=== PATIENT | male | born 1945 | race Caucasian/White ===

== ENCOUNTER 2018-02-16 18:24 | Emergency (ER) | payer OTHER, MEDICARE ==
[~2018-02-16 18:24] MED LIST: AMINOCAPROIC A500 MG PO; ATENOLOL50 MG PO; CIPRO 500MG TA500 MG PO; JANUMET 1000 MG1 TAB PO; JANUVIA 50MG50 MG PO; LOSARTAN POTASS50 MG PO; METFORMIN HCL1000 MG PO; PERCOCET 325 MG1 TA2 PO; TENORMIN 12.512.5 MG PO
[2018-02-16 19:02] LABS: ABSOLUTE BASOPHIL COUNT 0 /CUMM (0.0-0.2); ABSOLUTE EOSINOPHIL COUNT 0 /CUMM (0.0-0.7); ABSOLUTE GRANULOCYTE CT 7.3 /CUMM (1.4-6.5); ABSOLUTE LYMPH COUNT 1.2 /CUMM (1.2-3.4); ABSOLUTE MONOCYTE COUNT 1.3 /CUMM (0.10-0.60); BASOPHIL % 0.2 % (0.0-2.0); EOSINOPHIL % 0.3 % (0-5); GRANULOCYTE % 74.5 % (42.2-75.2); HEMATOCRIT 49.1 % (42-52); MEAN CORPUSCULAR HGB 29.9 PG (27.0-31.0); MEAN CORPUSCULAR HGB CONC 33.6 G/DL (33.0-37.0); MEAN CORPUSCULAR VOLUME 89.1 FL (80.0-94.0); MEAN PLATELET VOLUME 8.9 FL (7.4-10.4); PLATELET COUNT 194 /CUMM (130-400); RBC DISTRIBUTION WIDTH 13.3 % (11.5-14.5); RED BLOOD CELL CT 5.51 /CUMM (4.70-6.10); WHITE BLOOD CELL COUNT 9.9 /CUMM (4.8-10.8)
--- NOTE | 2018-02-16 19:55 | ED GI/GU/ABDOMINAL COMPLAINT ---
History of Present Illness General Chief Complaint: Male Genitourinary Problems Stated Complaint: BLEEDING OUT OF PENIS PER PT Source: patient, old records Exam Limitations: no limitations Vital Signs & Intake/Output Vital Signs & Intake/Output Vital Signs Date Time Temp Pulse Resp B/P B/P Pulse O2 O2 Flow FiO2 Mean Ox Delivery Rate 02/17 2112 99.2 76 16 117/65 95 Room Air 02/16 1838 97.8 121 19 149/76 96 Room Air Allergies Coded Allergies: shellfish derived (ALLERGIC TO LOBSTER AND CRAM VOMITING AND DIARRHEA 12/09/15) iodine (Mild, VOMITING/DIARRHEA 12/09/15) Reconcile Medications Aminocaproic Acid 500 MG TAB 2 TAB PO TID HEMATURIA Atenolol 50 MG TAB 1 TAB PO BID BP (Reported) Ciprofloxacin HCl (Cipro) 500 MG TABLET 1 TAB PO BID HEMATURIA Losartan Potassium 50 MG TAB 1 TAB PO DAILY HIGH BLOOD PRESSURE Metformin Hydrochloride/Brook (Janumet 1000 MG-50 MG) 1 TAB TAB 1 TAB PO BID DIABETES (Reported) Triage Note: PT WITH HX OF PROSTATE SURGERY X 2, KIDNEY STONES. SEEN BY MD MARTE TODAY. TO ED WITH COPIUS BLEEDING FROM PENIS, FREQUENT VOIDING SMALL AMOUNTS. Triage Nurses Notes Reviewed? yes Onset: Gradual Duration: constant Timing: recent history Severity Numbers: 5 Radiation: no radiation HPI: Patient is a 72-year-old male with a past medical history of hypertension and diabetes BPH kidney stones who is status post remote TURP and multiple cystoscopies and hematuria who presents to emergency room with concerns of hematuria 1 day. Patient did initially note decreased urine production yesterday and passing of small clots while urinating in which prior to arrival today patient has been unable to urinate. Patient denies any fever chills abdominal pain nausea vomiting testicular pain or swelling. (Cm Silver) Past History Travel History Traveled to [place] past 21 day No Medical History Any Pertinent Medical History? 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 No (Cm Silver) Review of Systems Review of Systems Constitutional: Reports: no symptoms. EENTM: Reports: no symptoms. Respiratory: Reports: no symptoms. Cardiovascular: Reports: no symptoms. GI: Reports: no symptoms. Genitourinary: Reports: see HPI, hematuria. Musculoskeletal: Reports: no symptoms. Skin: Reports: no symptoms. Neurological/Psychological: Reports: no symptoms. Hematologic/Endocrine: Reports: no symptoms. Immunologic/Allergic: Reports: no symptoms. All Other Systems: Reviewed and Negative (Cm Silver) Physical Exam Physical Exam General Appearance: no apparent distress, obese Head: atraumatic Eyes: Bilateral: normal appearance. Ears, Nose, Throat, Mouth: moist mucous membrane Neck: normal inspection Respiratory: normal breath sounds Cardiovascular: regular rate/rhythm Gastrointestinal: normal bowel sounds, soft, non-tender Extremities: normal range of motion Neurologic/Psych: no motor/sensory deficits, awake Core Measures ACS in differential dx? No Sepsis Present: No Sepsis Focused Exam Completed? No (Cm Silver) Progress Differential Diagnosis: AAA, AMI, appendicitis, biliary colic, bowel obstruction , colon cancer, cholecystitis, diverticulitis, epididymitis, gastritis, hepatitis, hernia, hemorrhoids, ischemic bowel, inflamm bowel dis, orchitis, pancreatitis, prostatitis, peptic ulcer, PUD/GERD, perforated viscous, pyelonephritis, SBO, testicular torsion, ureterolithiasis, urinary retention, urethritis, UTI/pyelo Plan of Care: Orders Procedure Date/time Status FingerStick- Glucose 02/17 2128 Active CULTURE,URINE 02/16 2009 Active URINALYSIS 02/16 1847 Complete COMPREHENSIVE METABOLIC PANEL 02/16 1841 Complete CBC WITHOUT DIFFERENTIAL 02/16 1841 Complete Laboratory Tests 02/16/182020: Urine Color BLDY H, Urine Clarity TURBD H, Urine pH 7.0, Ur Specific Pearl 1.020, Urine Protein >=300 H, Urine Ketones 15 H, Urine Nitrite POS H, Urine Bilirubin NEG, Urine Urobilinogen 4.0 H, Ur Leukocyte Esterase MOD H, Ur Microscopic SEDIMENT EXAMINED, Urine RBC PACKD H, Urine WBC 15-25 H, Urine Hemoglobin LARGE H, Urine Glucose >=1000 H 02/16/18 1845: Anion Gap 17 H, Estimated GFR > 60, BUN/Creatinine Ratio 24.4, Glucose 342 H, Calcium 9.7, Total Bilirubin 2.1 H, AST 21, ALT 27, Alkaline Phosphatase 71, Total Protein 7.8, Albumin 4.5, Globulin 3.3, Albumin/Globulin Ratio 1.4, CBC w Diff NO MAN DIFF REQ, RBC 5.51, MCV 89.1, MCH 29.9, MCHC 33.6, RDW 13.3, MPV 8.9 , Gran % 74.5, Lymphocytes % 12.1 L, Monocytes % 12.9 H, Eosinophils % 0.3, Basophils % 0.2, Absolute Granulocytes 7.3 H, Absolute Lymphocytes 1.2, Absolute Monocytes 1.3 H, Absolute Eosinophils 0, Absolute Basophils 0 Microbiology 02/16 2021 URINE ROUT: Urine Culture - RECD Patient upon initial presentation was resting comfortable at bedside patient denies any abdominal pain AND has nontender abdomen patient was able to produce while in the emergency room 60 mL of hematuria Patient's vital signs were unremarkable normotensive hemoglobin and hematocrit were unremarkable here discussed patient with Dr. Marte who advised patient to receive noncontrast CT scan and if patient was able to void in the emergency room then he was strongly advised to follow-up in office Patient does state that he did not take his blood pressure medications nor his Janumet today Upon discharge patient looks well no apparent distress and will comply out shortness instructions and had no questions. I described the scan with patient was aware and was given copy Patient again was able to void prior to discharge Diagnostic Imaging: Viewed by Me: CT Scan. Radiology Impression: SEE COMMENTS Initial ED EKG: none Comments: PATIENT: BLANCA ROBERTS PRESENT AGE: 72 PATIENT ACCOUNT NO: [id number] : 43 LOCATION: [facility] ORDERING PHYSICIAN: Cm BATISTA SERVICE DATE: 02/16/18-2020 EXAM TYPE: CAT - CT ABD & PELVIS W/O IV CONTRAS EXAMINATION: CT ABDOMEN AND PELVIS WITHOUT CONTRAST CLINICAL INFORMATION: Painless hematuria COMPARISON: 12/05/2015 TECHNIQUE: Multidetector volumetric imaging was performed from the superior aspect of the liver through the pubic symphysis. Sagittal and coronal reformatted images were obtained on the technologist's workstation. DLP: 1140 mGy-cm FINDINGS: LUNG BASES: The visualized lung bases are unremarkable. LIVER, GALLBLADDER, AND BILIARY TREE: The liver is normal in size, shape, and attenuation. No focal hepatic lesion or biliary ductal dilatation is present. Cholecystectomy. PANCREAS: Unremarkable. SPLEEN: Unremarkable. ADRENAL GLANDS: Unremarkable. KIDNEYS AND URETERS: The kidneys are normal in size, shape, and attenuation. No hydronephrosis, hydroureter, or calculi seen. Mild symmetric perinephric stranding. Right upper pole renal cyst measuring 4.5 cm. BLADDER: Bladder is distended. Prominent diverticulum at the dome of the bladder is again noted. Hyperattenuating debris is again noted at the dependent portion of the bladder, likely representing clotted blood. No significant bladder wall thickening. Faint stranding along the bladder wall. GASTROINTESTINAL TRACT: The stomach is unremarkable. The small bowel is normal in caliber. No obstruction. No colonic wall thickening or inflammatory change. No free air or free fluid. ABDOMINAL WALL: Small fat-containing left inguinal hernia. LYMPH NODES: Normal. VASCULAR: Unremarkable. PELVIC VISCERA: The prostate is enlarged, measuring 6.4 cm transverse. OSSEOUS STRUCTURES: No acute or suspicious osseous abnormality. Multilevel degenerative changes are seen throughout the spine mild degenerative changes of the hips. IMPRESSION: Similar appearance of the bladder when compared to the previous study from 12/05/2015. Prominent diverticulum at the bladder dome. Heterogeneous dense debris dependently within the bladder suggestive of blood clots. Component of cystitis not excluded. Prostatomegaly. Right renal cyst again noted. DICTATED BY: Leo Spring MD DATE/TIME DICTATED:02/16/182055 CLINICAL TRIAL DATA MANAGER:JANEY DATE/TIME TRANSCRIBED:02/16/182055 CONFIDENTIAL, DO NOT COPY WITHOUT APPROPRIATE AUTHORIZATION. <Electronically signed in Other Vendor System> SIGNED BY: Leo Spring MD 02/16 4232 (Cm Silver) Departure Departure Disposition: HOME OR SELF CARE Condition: Stable Clinical Impression Primary Impression: Hematuria Secondary Impressions: Hyperglycemia, Renal cyst Referrals: Aziza BARTON,Myl (PCP/Family) Additional Instructions: As discussed if symptoms worsen or if YOU develop any new concerning symptom return to emergency room. Please begin to take your home medications today especially your Janumet and continued checking YOUR blood sugar. Tomorrow please follow-up with your established urologist Dr. Marte. Please begin the prescription of ciprofloxacin as directed. Prescriptions waiting at [facility] Departure Forms: Customer Survey General Discharge Information Prescriptions: Current Visit Scripts Ciprofloxacin HCl (Cipro) 1 TAB PO BID #14 TAB (Cm Silver) PA/PICKING SUPERVISOR Co-Sign Statement Statement: ED Attending supervision documentation- x I saw and evaluated the patient. I have also reviewed all the pertinent lab results and diagnostic results. I agree with the findings and the plan of care as documented in the PA's/PICKING SUPERVISOR's documentation. [] I have reviewed the ED Record and agree with the PA's/PICKING SUPERVISOR's documentation. [] Additions or exceptions (if any) to the PAs/PICKING SUPERVISOR's note and plan are summarized below: [] (Jose Luis BARTON,Jose Elias)
--- NOTE | 2018-02-16 21:05 | CT SCAN REPORT ---
EXAMINATION: CT ABDOMEN AND PELVIS WITHOUT CONTRAST CLINICAL INFORMATION: Painless hematuria COMPARISON: 12/05/2015 TECHNIQUE: Multidetector volumetric imaging was performed from the superior aspect of the liver through the pubic symphysis. Sagittal and coronal reformatted images were obtained on the technologist's workstation. DLP: 1140 mGy-cm FINDINGS: LUNG BASES: The visualized lung bases are unremarkable. LIVER, GALLBLADDER, AND BILIARY TREE: The liver is normal in size, shape, and attenuation. No focal hepatic lesion or biliary ductal dilatation is present. Cholecystectomy. PANCREAS: Unremarkable. SPLEEN: Unremarkable. ADRENAL GLANDS: Unremarkable. KIDNEYS AND URETERS: The kidneys are normal in size, shape, and attenuation. No hydronephrosis, hydroureter, or calculi seen. Mild symmetric perinephric stranding. Right upper pole renal cyst measuring 4.5 cm. BLADDER: Bladder is distended. Prominent diverticulum at the dome of the bladder is again noted. Hyperattenuating debris is again noted at the dependent portion of the bladder, likely representing clotted blood. No significant bladder wall thickening. Faint stranding along the bladder wall. GASTROINTESTINAL TRACT: The stomach is unremarkable. The small bowel is normal in caliber. No obstruction. No colonic wall thickening or inflammatory change. No free air or free fluid. ABDOMINAL WALL: Small fat-containing left inguinal hernia. LYMPH NODES: Normal. VASCULAR: Unremarkable. PELVIC VISCERA: The prostate is enlarged, measuring 6.4 cm transverse. OSSEOUS STRUCTURES: No acute or suspicious osseous abnormality. Multilevel degenerative changes are seen throughout the spine mild degenerative changes of the hips. IMPRESSION: Similar appearance of the bladder when compared to the previous study from 12/05/2015. Prominent diverticulum at the bladder dome. Heterogeneous dense debris dependently within the bladder suggestive of blood clots. Component of cystitis not excluded. Prostatomegaly. Right renal cyst again noted.
[2018-02-16 21:12] VITALS: BP 117/65
[2018-02-16] MEDS ORDERED: CIPRO500 M1 PO (21:27)
== END 2018-02-16 22:07 ==
LOC: ERH 18:24
PROVIDERS: Emergency Medicine
DX: N28.1 Cyst of kidney, acquired (principal); E11.65 Type 2 diabetes mellitus with hyperglycemia
CPT/HCPCS: 74176; 81001; 87086

== ENCOUNTER 2018-02-17 14:38 | Observation (INO) | payer OTHER, MEDICARE ==
[~2018-02-17] VITALS: Ht 168.9 cm; Wt 107.5 kg
[~2018-02-17 14:38] MED LIST changes: +CIPRO500 M1 PO
--- NOTE | 2018-02-17 16:54 | PN- Urology ---
Surgical Brief Attending Note Brief Attending Note: POST OP HEMATURIA-REQUIRED CBI MUST KEEP OVERNIGHT.
--- NOTE | 2018-02-17 17:35 | Cons- Medical ---
Iliana Waller MD 02/17/18 1734: General Information and HPI Consulting Request Date of Consult: 02/17/18 Requested By: Luisito Marte MD Reason for Consult: Medical co-management of HTN and DM Source of Information: patient Exam Limitations: no limitations History of Present Illness: A pleasant 72 YO M with a PMH of T2DM, HTN and anxiety who was admitted this morning for recurrent hematuria which has been worsening. He is s/p a TURP this evening and is on continuous bladder irrigation. He denies any abdominal pain, nausea/vomiting, Chest pain or SOB. Medical Consult was called for co-management of his medical conditions. He report complianse on his medications and says his medical conditions have been stable. He is a former smoker and only drinks alcohol occassionally. Allergies/Medications Allergies: Coded Allergies: shellfish derived (ALLERGIC TO LOBSTER AND CRAM VOMITING AND DIARRHEA 12/09/15) iodine (Mild, VOMITING/DIARRHEA 12/09/15) Home Med List: Aminocaproic Acid 500 MG TAB 2 TAB PO TID HEMATURIA Atenolol 50 MG TAB 1 TAB PO BID BP (Reported) Ciprofloxacin HCl (Cipro) 500 MG TABLET 1 TAB PO BID HEMATURIA Losartan Potassium 50 MG TAB 1 TAB PO DAILY HIGH BLOOD PRESSURE Metformin Hydrochloride/Brook (Janumet 1000 MG-50 MG) 1 TAB TAB 1 TAB PO BID DIABETES (Reported) Current Medications: Current Medications Sig/Jonathan Start time Last Medication Dose Route Stop Time Status Admin Al Hydroxide/Mg 30 ML Q6P PRN 02/17 1700 AC Hydroxide PO Atenolol 50 MG DAILY 02/18 900 UNVr PO Ciprofloxacin 500 MG BID 02/17 2100 UNVr PO 02/22 0901 Docusate Sodium 100 MG DAILY NEEDED PRN 02/17 1700 UNVr PO Escitalopram Oxalate 10 MG BID PRN 02/17 1700 UNVr PO Insulin Human Regular 0 TIDAC/HS 02/17 2100 UNVr SC Losartan Potassium 50 MG DAILY 02/18 09 AC PO Metformin HCl 1,000 MG 0802/18 0800 UNVr PO Oxycodone/ 1 TAB Q4P PRN 02/17 1700 AC Acetaminophen PO Sitagliptin Phosphate 50 MG DAILY 02/18 09 UNVr PO Sodium Chloride 1,000 ML Q10H 02/17 1715 UNVr IV Zolpidem Tartrate 5 MG AT BEDTIME NEED.. 02/17 1700 AC PO Review of Systems Review of Systems Constitutional: Reports: no symptoms. Cardiovascular: Reports: no symptoms. Respiratory: Reports: no symptoms. Genitourinary: Reports: see HPI. 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 Surgical History Surgical History: non-contributory Exam & Diagnostic Data Last 24 Hrs of Vital Signs/I&O Vital Signs Date Time Temp Pulse Resp B/P B/P Pulse O2 O2 Flow FiO2 Mean Ox Delivery Rate 02/174 98.1 102 22 138/72 94 Room Air 02/17 2115 102 138/72 02/17 2114 102 138/72 Intake & Output 02/18 0800 02/18 0000 02/17 1600 Intake Total 1150 Output Total Balance 1150 Intake, IV 400 Intake, Oral 750 Patient 237 lb Weight Physical Exam General Appearance: alert, awake, comfortable, obese Respiratory: normal breath sounds, lungs clear Cardiovascular: regular rate/rhythm, normal peripheral pulses Gastrointestinal: soft, non-tender Extremities: no edema Other Physical Findings: CBI running, pinkish/red blood in bag Last 24 Hrs of Labs/Sukh: Laboratory Tests 02/17/18 1730: Anion Gap 14, Estimated GFR > 60, BUN/Creatinine Ratio 36.0 H, CBC w Diff NO MAN DIFF REQ, RBC 5.07, MCV 89.4, MCH 29.9, MCHC 33.5, RDW 13.6, MPV 8.8, Gran % 70.5, Lymphocytes % 12.6 L, Monocytes % 15.8 H, Eosinophils % 0.8, Basophils % 0.3, Absolute Granulocytes 5.1, Absolute Lymphocytes 0.9 L, Absolute Monocytes 1.1 H, Absolute Eosinophils 0.1, Absolute Basophils 0 Assessment/Plan Assessment/Plan A pleasant 72 YO M with a PMH of T2DM, HTN and anxiety/depression who was admitted this morning for recurrent hematuria which has been worsening. He is s/ p a TURP this evening with continuous bladder irrigation. He denies any abdominal pain, nausea/vomiting, chest pain or SOB. Assessment 1. Severe hematuria status post TURP-postop day 0 2. Type 2 diabetes not on insulin 3. Hypertension 4. Anxiety/depression 5. Obesity 6. Former smoker Plan -Admit to the general medicine floor -Continue continuous CBI per urology -Continue IV fluid hydration -Hold metformin and sitagliptin for now -Start subcu NovoLog sliding scale -Check fingersticks 3 times daily before meals and at bedtime -Diabetic diet -Restart his home antihypertensive and anxiety/depression medications -Patient is full code -Adequate pain control -Trend CBC -Vitals Q shift -DVT prophylaxis with Alps due to active bleeding -Thank you for your consult, we will follow along with you. Problem List: 1. Hematuria Copies To: Estuardo BARTON,Luisito Consult Acknowledgment - Thank you for your consult request. MarcioGuillermina moyer 02/18/18 0114: Assessment/Plan Consult Acknowledgment - Thank you for your consult request. Attending MD Review Statement Attending Statement Attending MD Statement: examined this patient, discuss w/resident/PA/ENGRAVER SET UP OPERATOR, agreed w/resident/PA/ENGRAVER SET UP OPERATOR, reviewed EMR data (avail), reviewed images, amended to note Attending Assessment/Plan: CC: Medical Comanagement PMH: DM, HTN, BPH s/p TURP, Hx bladder stones, ERNST Patient was admitted for gross hematuria underwent revision TURP, admitted for CBI. No complaints. Complete ROS unremarkable. Vitals: Temperature 98.1, pulse 102, RR 22, blood pressure 138/72, saturating 94 % on room air. On exam: A O 3, cooperative, obese, no acute distress, neck supple, JVD normal, no lymphadenopathy, mucosa moist, no focal neurological deficit, no dependent edema, no obvious skin rashes or inflammation CVS: S1-S2, RRR. RS: Clear to auscultate bilaterally. Abdomen: Soft, NT, ND, bowel sounds present, Serrano catheter: Hematuria. Assessment and plan # DM : Patient has intentional weight loss, on Janumet at home. We will discontinue oral hypoglycemics and continue sliding scale insulin # HTN: Continue his atenolol and losartan # ERNST : Continue nighttime CPAP # ?chronic prostatitis : Patient appears to be on by mouth Cipro started by urologist.
[2018-02-17 17:45] LABS: ABSOLUTE BASOPHIL COUNT 0 /CUMM (0.0-0.2); ABSOLUTE EOSINOPHIL COUNT 0.1 /CUMM (0.0-0.7); ABSOLUTE GRANULOCYTE CT 5.1 /CUMM (1.4-6.5); ABSOLUTE LYMPH COUNT 0.9 /CUMM (1.2-3.4); ABSOLUTE MONOCYTE COUNT 1.1 /CUMM (0.10-0.60); BASOPHIL % 0.3 % (0.0-2.0); EOSINOPHIL % 0.8 % (0-5); GRANULOCYTE % 70.5 % (42.2-75.2); HEMATOCRIT 45.3 % (42-52); MEAN CORPUSCULAR HGB 29.9 PG (27.0-31.0); MEAN CORPUSCULAR HGB CONC 33.5 G/DL (33.0-37.0); MEAN CORPUSCULAR VOLUME 89.4 FL (80.0-94.0); MEAN PLATELET VOLUME 8.8 FL (7.4-10.4); PLATELET COUNT 150 /CUMM (130-400); RBC DISTRIBUTION WIDTH 13.6 % (11.5-14.5); RED BLOOD CELL CT 5.07 /CUMM (4.70-6.10); WHITE BLOOD CELL COUNT 7.2 /CUMM (4.8-10.8)
[2018-02-17 21:44] VITALS: BP 138/72
[2018-02-18 06:00] VITALS: BP 132/68
--- NOTE | 2018-02-18 08:20 | PN- Att Addend ---
Attending Addendum Attending Brief Note Patient seen and examined. Overnight he had an uneventful night but continues to have hematuria with the Serrano. Patient seen and examined. On exam he is afebrile, blood pressures 130/60, pulse is 87, breathing at 16-18 Lungs are clear to auscultation bilaterally, heart is S1-S2 regular, abdomen is soft and like I said before he has a Serrano catheter with hematuria. His labs are still pending. This is a 72-year-old male that we were asked to consult on, he has a past medical history of diabetes on Janumet, hypertension and atenolol and losartan who is here status post TURP with hematuria. His labs are still pending. Dr. Marte is treating him with by mouth antibiotics and CBI with plan for likely discharge today with a chronic Serrano. Will need to follow-up as per urology. We will continue his antihypertensives, will follow his BUN and creatinine and his H&H as I think he was mildly dehydrated yesterday per his numbers. Right now he is on an insulin sliding scale and once he goes home he can likely restart his Janumet. The plan for likely discharge today with a chronic Serrano. Will need to follow-up as per urology.
[2018-02-18 08:35] LABS: ABSOLUTE BASOPHIL COUNT 0 /CUMM (0.0-0.2); ABSOLUTE EOSINOPHIL COUNT 0.1 /CUMM (0.0-0.7); ABSOLUTE GRANULOCYTE CT 6.3 /CUMM (1.4-6.5); ABSOLUTE LYMPH COUNT 0.8 /CUMM (1.2-3.4); ABSOLUTE MONOCYTE COUNT 1.2 /CUMM (0.10-0.60); BASOPHIL % 0.2 % (0.0-2.0); EOSINOPHIL % 1.7 % (0-5); GRANULOCYTE % 73.7 % (42.2-75.2); HEMATOCRIT 44.7 % (42-52); MEAN CORPUSCULAR HGB CONC 33.7 G/DL (33.0-37.0); MEAN CORPUSCULAR VOLUME 89.1 FL (80.0-94.0); MEAN PLATELET VOLUME 9.2 FL (7.4-10.4); PLATELET COUNT 152 /CUMM (130-400); RBC DISTRIBUTION WIDTH 13.9 % (11.5-14.5); RED BLOOD CELL CT 5.02 /CUMM (4.70-6.10); WHITE BLOOD CELL COUNT 8.5 /CUMM (4.8-10.8)
[2018-02-18 09:07] VITALS: BP 132/68
[2018-02-18] MEDS ORDERED: PERCOCET 5-3251 EACH PO (12:32)
[2018-02-18] MEDS ORDERED: DOCUSATE SODIU100 M3 PO (12:32)
--- NOTE | 2018-02-18 12:39 | PN- Urology ---
Surgical Brief Attending Note Brief Attending Note: Pt pain free/feels great: vss afebrile. overnight unremarkable. Exam unremarkable: john with clear output x 6 hours off of cbi. up in chair tolerating lunch well. Plan: dc home with john, abx, pain meds, and resume usual meds at home.
--- NOTE | 2018-02-23 07:54 | Operative Report ---
Operative/Inv Procedure Report Surgery Date: 02/17/18 Name of Procedure: revision TURP Pre-Operative Diagnosis: gross hematuria. Clot retention. Post-Operative Diagnosis: Same Estimated Blood Loss: large clot Surgeon/Reel System Operator: Luisito Marte MD Anesthesia: laryngeal mask airway Drains: 22 [place] three-way John catheter with normal saline CBI. Specimens: Prostate chips Complications: None Condition: Improved Operative Indication: Blood loss anemia with gross hematuria. Operative/Procedure Note Note: The patient was taken to the operating room and placed on the OR table in supine position. Timeout was performed, with the pt. awake, to correctly identify the patient, anesthesia, procedure, and IV antibiotics, and other pertinent perioperative information. After adequate anesthesia and antibiotics, the old John catheter was removed. The patient was then placed in lithotomy stirrups using yellowfin stirrups. The patient was then draped and prepped in the usual surgical fashion. A 26 [place]an standard resectoscope sheath with a 30 angle lens and the 24 [place] loop was inserted into the urethra, and then advanced into the bladder without significant difficulty. A large amount of clots, was Ellix evacuated out. The bladder was noted to be severely trabeculated with multiple diverticuli. No evidence of tumor, nor stone was seen in the bladder. Both ureteral orifices were in their orthotopic position with clear reflux bilaterally. With a clearer vision, the prostate was noted to have an irregular and ratty surface with severely coapting prostate lobes. This was consistent with regrowth of prostate tissue from a TURP several years ago. Upon entering the bladder, it was thoroughly and systematically surveyed revealing no evidence of tumor, no evidence of stone, both orifices were difficult to find due to the severe trabeculation, in their orthotopic position with clear yellow reflux. The resectoscope was then retracted to the level of the adrian montanum. Under direct visualization the 24 [place] loop was then extended beyond the scope. Under direct visualization, and using the cutting current, the left lobes of the prostate regrowth was resected from the 2:00 to the 6 o'clock position to the level of the fibromuscular capsule. Using coag. current, spot cauterization was performed in order to achieve good hemostasis of the prostate. The loop was then extended once again using cutting current to resect the right side of the prostate from the 10:00 to the 6 o'clock position to the level of the fibromuscular capsule. Spot cauterization using coag current was then performed in order to achieve good hemostasis. Maintaining the position of the resectoscope at the level of the vera montanum the apical tissue was resected as well on both sides. The external sphincter was preserved. The bladder was then re-entered via the resectoscope, and the prostate chips were irrigated out using tumey evacuation. Once all the prostate chips were removed, the bladder was re- evaluating and noted to have no untoward injury. Additionally, the prostate channel was noted to have good hemostasis, with a wide open channel. The resectoscope was removed with the bladder full. A 22 [place] couvalier three-way John catheter was inserted without difficulty draining clear fluid. The bladder was again copiously irrigated via the john to ensure patency/ The 30 mL balloon was then filled, and continuous bladder irrigation with normal saline was initiated. Clear and easy drainage of NS from the main port was confirmed with CBI. All sponge needle and instrument count were correct at the end of the case. The patient tolerated the procedure well and was then taken to the recovery room in satisfactory condition. Findings: Regrowth of obstructive prostate tissue Discharge Disposition: PACU CC: Estuardo BARTON,Luisito
== END 2018-02-18 13:43 ==
LOC: STS 14:38 → PACUH 15:59 → ENRESERV 17:41 → ENTRNSPT 18:03 → EDTRNSPT 18:14 → EDTRNSPTSTS 18:14 → 2NA 18:37 → CMPTRNSPT 18:39 → ENPENDDIS 02-18 12:35 → ENTRNSPT 02-18 13:30 → EDTRNSPT 02-18 13:34 → EDTRNSPTSTS 02-18 13:34 → 2NA 02-18 13:43 → CMPTRNSPT 02-18 13:54
PROVIDERS: Student in an Organized Health Care Education/Training Program; Urology
DX: N99.820 Postprocedural hemorrhage of a genitourinary system organ or structure following a genitourinary system procedure (principal); N40.0 Benign prostatic hyperplasia without lower urinary tract symptoms; E66.9 Obesity, unspecified; I10 Essential (primary) hypertension; Z87.442 Personal history of urinary calculi; G47.33 Obstructive sleep apnea (adult) (pediatric); Z86.73 Personal history of transient ischemic attack (TIA), and cerebral infarction without residual deficits; F41.9 Anxiety disorder, unspecified; Z87.891 Personal history of nicotine dependence; E11.9 Type 2 diabetes mellitus without complications; Z79.84 Long term (current) use of oral hypoglycemic drugs; D62 Acute posthemorrhagic anemia
CPT/HCPCS: 6030; 36592; 82436; 88305; 93005; 93010; G0378; J0696; J1815